=== PATIENT | female | born 1965 | race Hispanic/Latino ===

== ENCOUNTER 2020-12-16 15:06 | Inpatient (IN) | payer OTHER, MEDICARE ==
[~2020-12-16] VITALS: Ht 154.9 cm; Wt 78.5 kg
[2020-12-16 16:29] VITALS: BP 127/59
[2020-12-16 16:36] LABS: BASOPHILS % (AUTO) 0.7 % (0.0-5.0); EOSINOPHILS % (AUTO) 3.3 % (0.0-8.0); HEMATOCRIT 34.8 % (36-48); LYMPHOCYTES % (AUTO) 36.8 % (21.0-51.0); MEAN CORPUSCULAR HEMOGLOBIN 26.3 pg (27.0-33.0); MEAN CORPUSCULAR HGB CONC 31.3 g/dL (32.0-36.0); MEAN CORPUSCULAR VOLUME 84.1 fL (79-99); PLATELET COUNT (AUTO) 191 K/uL (130-400); RED BLOOD CELL COUNT(AUTO) 4.14 MIL/uL (4.00-5.50); RED CELL DISTRIBUTION WIDTH 15.2 % (11.0-15.5); WHITE BLOOD COUNT (AUTO) 4.3 K/uL (4.8-10.8)
[2020-12-16 16:40] LABS: APPEARANCE,URINE Clear (CLEAR); BILIRUBIN,URINE Negative (NEGATIVE); COLOR,URINE Yellow (YELLOW); GLUCOSE, URINE (UA) Negative (NEGATIVE); KETONES,URINE Negative (NEGATIVE); LEUKOCYTE ESTERASE ,URINE Large (NEGATIVE); NITRATE,URINE Negative (NEGATIVE); OCCULT BLOOD,URINE Negative (NEGATIVE); PH,URINE 6.5 (5.0-8.0); PROTEIN,URINE Negative (NEGATIVE)
[2020-12-16 16:48] LABS: CREATININE 0.6 mg/dL (0.5-1.5); POTASSIUM 3.6 mmol/L (3.5-5.1)
[2020-12-16 16:50] LABS: BACTERIA,URINE Few /HPF (None Seen); RBC,URINE 0-1 /HPF (0-1); SQUAMOUS EPITHELIAL CELL,UR 0-2 /HPF (0-2)
[2020-12-16 16:51] LABS: ALBUMIN 3.5 g/dL (3.5-5.0); BILIRUBIN,TOTAL 0.2 mg/dL (0.2-1.0); TOTAL PROTEIN, SERUM 7.3 g/dL (6.0-8.3)
[2020-12-16] MEDS ORDERED: ONDANSETRON 4MG INJ IVP ONE (17:00)
[2020-12-16] MEDS ORDERED: KETOROLAC 30MG VIAL (30MG/ML) IV ONE (17:00)
[2020-12-16] MEDS ORDERED: FENTANYL CITRATE PF 50 MCG/1 ML 2ML VIAL IVP ONE (17:00)
[2020-12-16] MEDS ORDERED: LACTATED RINGERS 1000ML 1,000 ML IV ONE ×2 (17:00)
[2020-12-16 18:16] VITALS: BP 142/55
[2020-12-16] MEDS ORDERED: IOHEXOL 350 MG/ML 100ML INFUS..BTL IV ONE (18:17)
[2020-12-16] MEDS ORDERED: MORPHINE 2 MG SYG IV PRN (20:00)
[2020-12-16] MEDS ORDERED: MORPHINE 4 MG SYG IV PRN (20:00)
[2020-12-16] MEDS ORDERED: ONDANSETRON 4MG INJ IV PRN (20:00)
[2020-12-16] MEDS ORDERED: NITROGLYCERIN 0.4 MG SL TAB SL PRN (20:00)
[2020-12-16 20:34] VITALS: BP 143/55
[2020-12-16 20:41] LABS: CHOLESTEROL 148 mg/dL (<200); HDL CHOLESTEROL 42 mg/dL (35-85); LDL DIRECT 91 mg/dL (0-99); TRIGLYCERIDES 99 mg/dL (30-200)
[2020-12-16] MEDS: FAMOTIDINE 20MG VIAL IV SCH (21:24)
[2020-12-16] MEDS: LACTATED RINGERS 1000ML 1,000 ML IV SCH (21:24)
[2020-12-16] MEDS: METRONIDAZOLE 500MG/100ML BAG 100 ML IV SCH (21:24)
[2020-12-17] VITALS (7 sets, daily range): BP systolic 97–140; BP diastolic 55–64
[2020-12-17] MEDS ORDERED: LEVO112T7 PO (01:17)
[2020-12-17] MEDS: METRONIDAZOLE 500MG/100ML BAG 100 ML IV SCH ×3 (03:18→20:06)
[2020-12-17] MEDS: LACTATED RINGERS 1000ML 1,000 ML IV SCH ×4 (03:18→21:17)
[2020-12-17] MEDS ORDERED: GLUCAGON 1MG KIT 1 MG ML IM PRN (06:00)
[2020-12-17] MEDS: INSULIN HUMULIN R 100 UNIT/ML 3ML SQ SCH ×3 (06:35→16:17)
[2020-12-17] MEDS: FAMOTIDINE 20MG VIAL IV SCH ×2 (09:14→20:10)
[2020-12-17] MEDS ORDERED: LINA145C PO (09:15)
[2020-12-17] MEDS: KETOROLAC 15MG/ML VIAL (15MG/ML) IV PRN (15:02)
[2020-12-17] MEDS ORDERED: MAGNESIUM CITRATE 296 ML SOLUTION PO ONE (19:00)
[2020-12-17] MEDS: DEXTROSE 50%-WATER 50 ML DISP.SYRIN IV PRN (21:15)
[2020-12-18] VITALS (7 sets, daily range): BP systolic 107–132; BP diastolic 46–65
[2020-12-18] MEDS: LACTATED RINGERS 1000ML 1,000 ML IV SCH ×2 (03:11→12:09)
[2020-12-18] MEDS: METRONIDAZOLE 500MG/100ML BAG 100 ML IV SCH ×3 (03:13→21:00)
[2020-12-18] MEDS: KETOROLAC 15MG/ML VIAL (15MG/ML) IV PRN (03:13)
[2020-12-18 05:56] LABS: BASOPHILS % (AUTO) 0.5 % (0.0-5.0); EOSINOPHILS % (AUTO) 3.3 % (0.0-8.0); HEMATOCRIT 32.4 % (36-48); LYMPHOCYTES % (AUTO) 40.3 % (21.0-51.0); MEAN CORPUSCULAR HEMOGLOBIN 26.8 pg (27.0-33.0); MEAN CORPUSCULAR HGB CONC 31.8 g/dL (32.0-36.0); MEAN CORPUSCULAR VOLUME 84.2 fL (79-99); MONOCYTES % (AUTO) 10.3 % (3.0-13.0); NEUTROPHILS % (AUTO) 45.4 % (40.0-77.0); PLATELET COUNT (AUTO) 154 K/uL (130-400); RED BLOOD CELL COUNT(AUTO) 3.85 MIL/uL (4.00-5.50); RED CELL DISTRIBUTION WIDTH 14.9 % (11.0-15.5); WHITE BLOOD COUNT (AUTO) 4.2 K/uL (4.8-10.8)
[2020-12-18] MEDS: DEXTROSE 50%-WATER 50 ML DISP.SYRIN IV PRN (06:01)
[2020-12-18 06:26] LABS: ALBUMIN 3.1 g/dL (3.5-5.0); BILIRUBIN,TOTAL 0.3 mg/dL (0.2-1.0); CREATININE 0.6 mg/dL (0.5-1.5); POTASSIUM 3.9 mmol/L (3.5-5.1); TOTAL PROTEIN, SERUM 6.6 g/dL (6.0-8.3)
[2020-12-18] MEDS: INSULIN HUMULIN R 100 UNIT/ML 3ML SQ SCH ×2 (07:30→11:30)
[2020-12-18] MEDS: FAMOTIDINE 20MG VIAL IV SCH ×2 (09:45→21:00)
[2020-12-18] MEDS ORDERED: LACTULOSE 20 GM/30 ML UDCUP PO ONE (14:00)
[2020-12-18] MEDS: DEXTROSE 5%-LACTATED RINGERS 1,000 ML IV SCH ×3 (14:23→23:06)
[2020-12-19] VITALS (7 sets, daily range): BP systolic 117–143; BP diastolic 58–78
[2020-12-19] MEDS: DEXTROSE 5%-LACTATED RINGERS 1,000 ML IV SCH ×5 (05:00→21:48)
[2020-12-19] MEDS: METRONIDAZOLE 500MG/100ML BAG 100 ML IV SCH (05:02)
[2020-12-19 05:28] LABS: BASOPHILS % (AUTO) 0.5 % (0.0-5.0); EOSINOPHILS % (AUTO) 4.1 % (0.0-8.0); HEMATOCRIT 33.1 % (36-48); LYMPHOCYTES % (AUTO) 34.6 % (21.0-51.0); MEAN CORPUSCULAR HGB CONC 30.8 g/dL (32.0-36.0); MEAN CORPUSCULAR VOLUME 84.2 fL (79-99); MONOCYTES % (AUTO) 9.4 % (3.0-13.0); NEUTROPHILS % (AUTO) 51.2 % (40.0-77.0); PLATELET COUNT (AUTO) 160 K/uL (130-400); RED BLOOD CELL COUNT(AUTO) 3.93 MIL/uL (4.00-5.50); RED CELL DISTRIBUTION WIDTH 14.7 % (11.0-15.5); WHITE BLOOD COUNT (AUTO) 4.1 K/uL (4.8-10.8)
[2020-12-19 05:49] LABS: ALBUMIN 3.1 g/dL (3.5-5.0); BILIRUBIN,TOTAL 0.2 mg/dL (0.2-1.0); CREATININE 0.7 mg/dL (0.5-1.5); POTASSIUM 3.5 mmol/L (3.5-5.1); TOTAL PROTEIN, SERUM 6.7 g/dL (6.0-8.3)
[2020-12-19] MEDS ORDERED: MAGNESIUM CITRATE 296 ML SOLUTION PO SCH (08:30)
[2020-12-19] MEDS ORDERED: MAGNESIUM CITRATE 296 ML SOLUTION PO PRN (08:30)
[2020-12-19] MEDS: FAMOTIDINE 20MG VIAL IV SCH ×2 (09:11→21:47)
[2020-12-19] MEDS ORDERED: LACTULOSE 20 GM/30 ML UDCUP PO PRN (15:00)
[2020-12-19] MEDS: KETOROLAC 15MG/ML VIAL (15MG/ML) IV PRN (21:56)
[2020-12-20] MEDS: DEXTROSE 5%-LACTATED RINGERS 1,000 ML IV SCH ×3 (02:44→11:25)
[2020-12-20 03:36] VITALS: BP 117/59
[2020-12-20 05:52] LABS: BASOPHILS % (AUTO) 0.6 % (0.0-5.0); EOSINOPHILS % (AUTO) 4.7 % (0.0-8.0); HEMATOCRIT 32.4 % (36-48); LYMPHOCYTES % (AUTO) 45.3 % (21.0-51.0); MEAN CORPUSCULAR HGB CONC 30.9 g/dL (32.0-36.0); MEAN CORPUSCULAR VOLUME 84.2 fL (79-99); MONOCYTES % (AUTO) 10.3 % (3.0-13.0); NEUTROPHILS % (AUTO) 39.1 % (40.0-77.0); PLATELET COUNT (AUTO) 152 K/uL (130-400); RED BLOOD CELL COUNT(AUTO) 3.85 MIL/uL (4.00-5.50); RED CELL DISTRIBUTION WIDTH 14.7 % (11.0-15.5); WHITE BLOOD COUNT (AUTO) 3.2 K/uL (4.8-10.8)
[2020-12-20 06:00] LABS: BILIRUBIN,TOTAL 0.2 mg/dL (0.2-1.0); CREATININE 0.6 mg/dL (0.5-1.5); POTASSIUM 3.3 mmol/L (3.5-5.1); TOTAL PROTEIN, SERUM 6.5 g/dL (6.0-8.3)
[2020-12-20 08:19] VITALS: BP 127/56
[2020-12-20] MEDS: FAMOTIDINE 20MG VIAL IV SCH (09:31)
[2020-12-20 11:10] VITALS: BP 120/67
== END 2020-12-20 14:15 | disposition home or self-care (01) | DRG 440 ==
LOC: EDH 15:06 → EDHIP 19:58 → OBSVTOIN 19:58 → 3DH 12-17 00:43
PROVIDERS: ADMIT Internal Medicine; ATTEND Internal Medicine
DX: K85.90 Acute pancreatitis without necrosis or infection, unspecified (principal); E11.9 Type 2 diabetes mellitus without complications; Z20.822 Contact with and (suspected) exposure to COVID-19; K21.9 Gastro-esophageal reflux disease without esophagitis; M06.9 Rheumatoid arthritis, unspecified; M81.0 Age-related osteoporosis without current pathological fracture; M79.7 Fibromyalgia; G89.4 Chronic pain syndrome; K59.00 Constipation, unspecified; I72.8 Aneurysm of other specified arteries; E03.9 Hypothyroidism, unspecified; R74.8 Abnormal levels of other serum enzymes; Z88.8 Allergy status to other drugs, medicaments and biological substances; Z90.49 Acquired absence of other specified parts of digestive tract; Z85.850 Personal history of malignant neoplasm of thyroid; Z98.84 Bariatric surgery status
CPT/HCPCS: 36415; 71045; 74170; 80053; 80061; 81001; 82150; 82550; 82948; 83540; 83550; 83690; 84484; 85025; 87088; 87635; 93005; G0378; J1885; J2405; J3010; J3490; J7070; J7120; Q9967